=== PATIENT | female | born 1955 ===

== ENCOUNTER 2019-12-30 10:15 | Inpatient (IN) | payer OTHER ==
[~2019-12-30] VITALS: Ht 157.5 cm; Wt 61.2 kg
[2020-01-06] MEDS ORDERED: METOPROLOL SUCC25 MG (08:41)
[2020-01-06] MEDS ORDERED: LOSARTAN POTASS25 MG (08:41)
== END 2020-01-09 11:34 | disposition home or self-care (01) | DRG 331 ==
LOC: SURG 01-06 05:40 → O/R 01-06 05:40 → SURH 01-06 10:15 → SURG 01-06 10:20 → SURH 01-06 15:30 → SURG 01-09 11:34
PROVIDERS: ADMIT Colon & Rectal Surgery; ATTEND Colon & Rectal Surgery
PROC: 0DTN4ZZ Resection of Sigmoid Colon, Percutaneous Endoscopic Approach (ICD-10-PCS; principal; 2020-01-06 15:30)
DX: K57.32 Diverticulitis of large intestine without perforation or abscess without bleeding (principal); R73.01 Impaired fasting glucose; D64.9 Anemia, unspecified

== ENCOUNTER 2021-02-10 12:31 | Day surgery (SDC) | payer OTHER ==
[~2021-02-10 12:31] MED LIST: LOSARTAN POTASS25 MG; METOPROLOL SUCC25 MG
== END 2021-02-10 17:00 | disposition home or self-care (01) ==
LOC: AMB-ENDOS 12:31
PROVIDERS: ATTEND Colon & Rectal Surgery
DX: K57.32 Diverticulitis of large intestine without perforation or abscess without bleeding (principal); K64.0 First degree hemorrhoids; Z20.822 Contact with and (suspected) exposure to COVID-19